=== PATIENT | male | born 1985 | race African-American/Black ===

== ENCOUNTER 2023-10-28 12:37 | Outpatient (CLI) | payer OTHER, SELFPAY | END 2023-10-28 12:38 | disposition home or self-care (01) | LOC: AMB 11-09 16:23 | PROVIDERS: Visit Provider Family Medicine | DX: R07.89 Other chest pain (principal) | CPT/HCPCS: A0425; A0427 ==

== ENCOUNTER 2023-10-28 13:01 | Emergency (ER) | payer OTHER, SELFPAY ==
--- NOTE | 2023-10-28 13:06 | XR_ITS ---
Patient: KEYANA TILLEY Facility:?[facility] Patient ID:?[id number] Site Patient ID:?[id number]. Site :?[id number] Study:?XRay-Chest PORTABLE-10/28/2023 1:13:43 PM Ordering Physician:RANULFO Final Report: Indication: Shortness of breath Technique: Frontal view of the chest Comparison: None Findings: The cardiomediastinal silhouette and pulmonary vasculature is unremarkable. No focal airspace consolidation, pleural effusion, or pneumothorax. No displaced fractures. Impression: No acute cardiopulmonary process. Dictated by Eugenio Jeffers MD @ 10/28/2023 1:35:15 PM Signed by:?Eugenio Jeffers MD @10/28/2023 1:35:15 PM (Electronic Signature)
[2023-10-28 13:07] VITALS: BP 147/90; PULSE 90; RESP 18; TEMP 37.4; O2SAT 97; BMI 35.4
--- NOTE | 2023-10-28 13:21 | ED.GENADULT ---
HPI - General Adult General Time Seen by Provider: 13:21 Date Seen: 10/28/23 Chief complaint: Cough Stated complaint: shortness of breath Time Seen by Provider: 10/28/23 13:03 Source: patient, EMS and RN notes reviewed Mode of arrival: EMS Limitations: no limitations History of Present Illness HPI narrative: This 38-year-old gentleman is brought in by ambulance from [employer] where he has his rig part. 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 He has been sick for 3 days, coughing, body aches, headache, neck aches, sore throat, congestion. He is a nonsmoker, denies any history of any asthma or respiratory issues. He does feel short of breath with his symptoms. He last took Advil early this morning about 2 or 3:00 a.m. nothing since. Related Data Allergies Allergy/AdvReac Type Severity Reaction Status Date / Time No Known Drug Allergies Allergy Verified 10/28/23 13:07 Review of Systems Status of ROS: Reports: 6 or more systems reviewed and unremarkable except as noted in History and below Exam Const: Vital Signs, click to edit/add: Vital Signs - 24 hr 10/28/23 13:07 Temperature 99.3 F Pulse Rate [Right Pulse Oximeter] 90 Respiratory Rate 18 Blood Pressure [Ri ght Upper Arm] 147/90 H Pulse Oximetry 97 Oxygen Delivery Me thod Room Air 38-year-old male with dry cough, speech otherwise normal, able to speak in complete sentences. He is alert, interactive, looks like he does not feel well. Sclera clear. Oropharynx normal mucosa no exudates erythema. TMs are normal. Anterior nares normal. Neck is supple, no adenopathy. Lungs are clear with good air entry, no wheezing or crackles, no prolonged expiratory phase. Deep breathing does induce some coughing. CV regular rate rhythm, no murmur, normal S1-S2, no S3 or S4 heard. Documenting provider has reviewed patient's vital signs: yes Course Course ED Course: The patient obviously has an upper respiratory infection, likely viral. Have reviewed this with him. Nursing staff collected strep as well as the triple viral swab. Will do a portable chest x-ray. He is not hypoxic, is not tachypneic, will await test results. If chest x-ray looks abnormal, will consider blood work. Reevaluation(s) Time of Reevaluation #1: 14:14 Reevaluation #1: Have reviewed with patient that he is testing positive for influenza B as well as strep. He is wondering how to treat the headache and the fever. Reviewed that he is going to need to use ongoing Tylenol and ibuprofen. With treatment of his symptoms, he should hopefully improve. He started with sore throat headache and body aches on Sunday, the sore throat was bad. He did not start coughing until yesterday. We discussed indications for Tamiflu and the 48 hour window. He would still like this prescribed. Did review that there is a possibility that it may not be effective and he maybe out of the window of help fullness. It is difficult to pinpoint exactly what started when in his situation. Thus, will agree to try Tamiflu and will get an antibiotic for the strep. Amoxicillin 500 mg t.i.d. times 10 days and Tamiflu 75 mg p.o. b.i.d. x5 days given from [facility] as requested by the patient. Vital Signs Vital signs: Initial Vital Signs Temperature 99.3 F 10/28/23 13:07 Temperature Source Temporal Artery Scan 10/28/23 13:07 Pulse Rate 90 10/28/23 13:07 Pulse Rhythm Regular 10/28/23 13:07 Pulse Strength 3+ Normal 10/28/23 13:07 Respiratory Rate 18 10/28/23 13:07 Blood Pressure 147/90 H 10/28/23 13:07 Blood Pressure Mean 109 H 10/28/23 13:07 Blood Pressure Position Sitting 10/28/23 13:07 Pulse Oximetry 97 10/28/23 13:07 Oxygen Delivery Method Room Air 10/28/23 13:07 Vital Signs Temperature 99.3 F 10/28/23 13:07 Pulse Rate 90 10/28/23 13:07 Respiratory Rate 18 10/28/23 13:07 Blood Pressure 147/90 H 10/28/23 13:07 Pulse Oximetry 97 10/28/23 13:07 Oxygen Delivery Method Room Air 10/28/23 13:07 Temperature 99.3 F 10/28/23 13:07 Pulse Rate 90 10/28/23 13:07 Respiratory Rate 18 10/28/23 13:07 Blood Pressure 147/90 H 10/28/23 13:07 Pulse Oximetry 97 10/28/23 13:07 Oxygen Delivery Method Room Air 10/28/23 13:07 Medications Administered Medications: Discontinued Medications Generic Name Dose Route Start Last Admin Trade Name Joao PRN Reason Stop Dose Admin Ibuprofen 600 mg 10/28/23 13:38 10/28/23 13:46 Ibuprofen 200 Mg Tablet PO 10/28/23 13:39 600 mg ONCE ONE Administration Medical Decision Making Lab Data Lab results reviewed: Yes I reviewed the patient's lab results Labs: Lab Results 10/28/23 Range/Units 13:11 SARS-CoV-2 (PCR) Negative SARS-CoV-2 (Negative) Influenza Type A (PCR) Negative PCR FLU A (Negative) Influenza Type B (PCR) POSITIVE PCR FLU B A (Negative) RSV (PCR) Negative PCR RSV (Negative) Group A Strep DNA DETECTED A (Not Detectd) Imaging Data Chest x-ray: Attestation: I have reviewed the pertinent imaging results. My impression: I see no definitive infiltrate or acute pathology on my preliminary review. Radiologist's impression: Patient: KEYANA ARAYAVIL Facility:?[facility] Patient ID:?[id number] Site Patient ID:?[id number]. Site :?[id number] Study:?XRay Chest PORTABLE-10/28/2023 1:13:43 PM Ordering Physician:RANULFO Final Report: Indication: Shortness of breath Technique: Frontal view of the chest Comparison: None Findings: The cardiomediastinal silhouette and pulmonary vasculature is unremarkable. No focal airspace consolidation, pleural effusion, or pneumothorax. No displaced fractures. Impression: No acute cardiopulmonary process. Dictated by Eugenio Jeffers MD @ 10/28/2023 1:35:15 PM (Electronic Signature) Discharge Plan Discharge Clinical Impression: Influenza B, Acute streptococcal pharyngitis Patient Disposition: Home, Self-Care Condition: Stable Instructions: Strep Throat (ED), Influenza (ED) Additional Instructions: Start Tamiflu and amoxicillin. Take as prescribed. Recommend Tylenol 1000 mg 3 times a day and supplement with ibuprofen per bottle directions as needed for symptom or fever control. Drink plenty of fluids. If you are not improving over the next week, feel you are worsening at any point or have further concerns, seek re-evaluation. Activity Level: Activity as Tolerated Discharge Diet: Regular Follow Up/Referrals: Provider,Not a Local [Primary Care Provider] - Stand Alone Forms: [employer] Info Instructions
[2023-10-28 13:46] LABS: Strep A DNA Probe* DETECTED (Not Detectd)
[2023-10-28] MEDS: IBUPROFEN 200 MG TABLET 600 MG PO (13:46)
[2023-10-28 13:59] LABS: PCR FLU A Negative PCR FLU A (Negative); PCR FLU B POSITIVE PCR FLU B (Negative); PCR RSV Negative PCR RSV (Negative); SARS PCR* Negative SARS-CoV-2 (Negative)
== END 2023-10-28 14:47 | disposition home or self-care (01) ==
PROVIDERS: Emergency Provider Family Medicine
DX: J10.1 Influenza due to other identified influenza virus with other respiratory manifestations (principal); J02.0 Streptococcal pharyngitis
CPT/HCPCS: 71045; 87631; 87651; 99283; A9270